=== PATIENT | female | born 1975 | race Caucasian/White ===

== ENCOUNTER 2021-09-09 18:43 | Emergency (ER) | payer SELFPAY ==
[~2021-09-09] VITALS: Ht 152.4 cm; Wt 68.0 kg
[2021-09-09 19:06] VITALS: BP 128/79
[2021-09-09] MEDS ORDERED: IBUPROFEN 400MG TABLET PO ONE (22:45)
[2021-09-10] MEDS ORDERED: IBUP-2028 MT (01:58)
== END 2021-09-10 02:25 | disposition home or self-care (01) ==
LOC: ER 18:43
DX: M25.572 Pain in left ankle and joints of left foot (principal); M79.672 Pain in left foot; E11.9 Type 2 diabetes mellitus without complications; I10 Essential (primary) hypertension; E78.00 Pure hypercholesterolemia, unspecified
CPT/HCPCS: 73610; 73630; 81025; 82962; 93970; 99284